=== PATIENT | male | born 1955 | race American Indian/Alaskan Native ===

== ENCOUNTER 2017-08-29 19:19 | Emergency (ER) | payer MEDICAID, OTHER ==
[2017-08-29 19:44] VITALS: TEMP 97.7
--- NOTE | 2017-08-29 19:59 | ED PDOC ---
HPI: Chest Pain Time Seen by Provider: 08/29/17 19:33 Chief Complaint (Nursing): Chest Pain Chief Complaint (Provider): substernal chest pain History Per: Patient History/Exam Limitations: no limitations Onset/Duration Of Symptoms: Hrs Current Symptoms Are (Timing): Still Present Severity: None Quality: "Pain" Associated Symptoms: denies: Nausea, Dyspnea Modifying Factors: None Exacerbating Factors: None Additional Complaint(s): 62 year old male with past medical history of hypertension of gout is brought into the emergency department by ambulance complaining of substernal chest pain which began this morning. Patient states that the pain is non radiating and is not associated with shortness of breath. - Risk Factors TAD Risk Factors: Pos: Hypertension Past Medical History Reviewed: Historical Data, Nursing Documentation, Vital Signs Vital Signs: Last Vital Signs Temp 97.7 F 08/29/17 19:30 Pulse 64 08/29/17 20:02 Resp 18 08/29/17 19:30 BP 109/64 08/29/17 20:02 Pulse Ox 98 08/29/17 23:43 - Medical History PMH: Arthritis, HTN, Sleep Apnea - Surgical History Surgical History: No Surg Hx - Family History Family History: States: Unknown Family Hx - Immunization History Hx Tetanus Toxoid Vaccination: No Hx Influenza Vaccination: No Hx Pneumococcal Vaccination: No - Home Medications Home Medications: Ambulatory Orders Medication Instructions Recorded Antihypertensive 05/14/14 Naprosyn 05/14/14 Naproxen [Naprosyn] 1 tab PO BID PRN #25 tab 05/14/14 - Allergies Allergies/Adverse Reactions: Allergies Allergy/AdvReac Type Severity Reaction Status Date / Time No Known Allergies Allergy Verified 08/29/17 19:41 Review of Systems ROS Statement: Except As Marked, All Systems Reviewed And Found Negative Cardiovascular: Positive for: Chest Pain (substernal) Respiratory: Negative for: Cough, Shortness of Breath Physical Exam - Reviewed Nursing Documentation Reviewed: Yes Vital Signs Reviewed: Yes - Physical Exam Appears: Positive for: Non-toxic, No Acute Distress Head Exam: Positive for: ATRAUMATIC, NORMAL INSPECTION, NORMOCEPHALIC Skin: Positive for: Normal Color, Warm, Dry. Negative for: Rash Eye Exam: Positive for: Normal appearance, EOMI, PERRL. Negative for: Nystagmus ENT: Positive for: Normal ENT Inspection. Negative for: Nasal Congestion, Tonsillar Exudate, Tonsillar Swelling Neck: Positive for: Normal, Painless ROM, Supple Cardiovascular/Chest: Positive for: Regular Rate, Rhythm, Chest Non Tender. Negative for: Tachycardia Respiratory: Positive for: Normal Breath Sounds. Negative for: Rales, Rhonchi, Wheezing, Respiratory Distress Gastrointestinal/Abdominal: Positive for: Normal Exam, Bowel Sounds, Soft. Negative for: Tenderness, Mass, Guarding, Rebound Back: Positive for: Normal Inspection. Negative for: L CVA Tenderness, R CVA Tenderness Extremity: Positive for: Normal ROM, Other (1-2 + pidding edema b/l). Negative for: Tenderness, Calf Tenderness, Deformity, Swelling Neurologic/Psych: Positive for: Alert, Oriented, Gait - Laboratory Results Result Diagrams: 08/29/17 20:10 08/29/17 20:10 - ECG O2 Sat by Pulse Oximetry: 98 (RA) Pulse Ox Interpretation: Normal Medical Decision Making Medical Decision Makin Initial Impression 62 y/o male presenting with substernal chest pain Initial Plan: * EKG * PROBNP * CMP * Troponin * CBC * CXR * reevaluation Documented by Jessica almeida acting as a scribe for Dung Richardson MD. All medical record entries made by the Scribe were at my direction and personally dictated by me. I have reviewed the chart and agree that the record accurately reflects my personal performance of the history, physical exam, medical decision making, and the department course for this patient. I have also personally directed, reviewed, and agree with the discharge instructions and disposition. Disposition - Clinical Impression Clinical Impression: Chest pain - Patient ED Disposition Is Patient to be Admitted: No Counseled Patient/Family Regarding: Studies Performed, Diagnosis, Need For Followup - Disposition Referrals: [facility] [Outside] Disposition: Routine/Home Disposition Time: 23:42 Condition: FAIR Instructions: Chest Pain Forms: [employer] (Serbian)
[2017-08-29 20:25] LABS: BASO # 0.1 K/uL (0.0-0.2); BASO % 0.6 % (0.0-2.0); EOS # 0.1 K/uL (0.0-0.7); EOS % 0.5 % (0.0-4.0); HEMOGLOBIN 11.6 g/dL (12.0-18.0); LYMPH # 1.4 K/uL (1.0-4.3); MEAN CELL VOLUME 87.3 fl (80.0-94.0); MEAN CORPUSCULAR HEMOGLOBIN 27.6 pg (27.0-31.0); MEAN CORPUSCULAR HGB CONC 31.6 g/dL (33.0-37.0); MEAN PLATELET VOLUME 9.2 fl (7.2-11.7); MONO # 0.9 K/uL (0.0-0.8); MONO % 7.7 % (0.0-10.0); NEUT # 9.5 K/uL (1.8-7.0); NEUT % 79.2 % (50.0-75.0); NRBC % 0.2 % (0.0-0.0); RBC 4.2 Mil/uL (4.40-5.90)
[2017-08-29 20:36] LABS: ALB/GLOB RATIO 0.8 (1.0-2.1); ALBUMIN 3.2 g/dL (3.5-5.0); ALT/SGPT 36 U/L (21-72); AST/SGOT 17 U/L (17-59); BLOOD UREA NITROGEN 18 mg/dl (9-20); CALCIUM 8.7 mg/dL (8.4-10.2); GFR AFRICAN-AMERICAN > 60; GFR NON-AFRICAN AMERICAN > 60
[2017-08-29 20:48] LABS: B-TYPE NATRIURETIC PEPTIDE 131 pg/ml (0-900)
[2017-08-30 05:50] VITALS: BP 120/77; PULSE 69; RESP 12; O2SAT 95
--- NOTE | 2017-08-30 07:50 | RAD ---
HISTORY: chest pain COMPARISON: No prior. TECHNIQUE: Chest PA and lateral FINDINGS: LUNGS: No active pulmonary disease. PLEURA: No significant pleural effusion identified. No pneumothorax apparent. CARDIOVASCULAR: Normal. OSSEOUS STRUCTURES: No significant abnormalities. VISUALIZED UPPER ABDOMEN: Normal. OTHER FINDINGS: None. IMPRESSION: No acute cardiopulmonary disease appreciated.
--- NOTE | 2017-08-30 20:38 | CARD ---
APPROVED REPORT EKG Measurement Heart [id number] <Conclusion> Normal sinus rhythm Moderate voltage criteria for LVH, may be normal variant Borderline ECG
== END 2017-08-30 05:50 | disposition home or self-care (01) ==
LOC: H.ER 19:19
DX: R07.89 Other chest pain (principal); I10 Essential (primary) hypertension

== ENCOUNTER 2017-08-30 19:44 | Emergency (ER) | payer MEDICAID ==
[2017-08-30 19:52] VITALS: BP 120/74; PULSE 82; RESP 18; TEMP 97.6; O2SAT 97
--- NOTE | 2017-08-30 20:54 | ED PDOC ---
Lower Extremity Pain/Injury Time Seen by Provider: 08/30/17 20:17 Chief Complaint (Nursing): Lower Extremity Problem/Injury Chief Complaint (Provider): Lower Extremity Problem/Injury History Per: Patient History/Exam Limitations: no limitations Additional Complaint(s): 62 year old male presents to emergency department with bilateral foot pain. PMD: Thea Kong MD Past Medical History Reviewed: Historical Data, Nursing Documentation, Vital Signs Vital Signs: Last Vital Signs Temp 97.6 F 08/30/17 19:47 Pulse 82 08/30/17 19:47 Resp 18 08/30/17 19:47 BP 120/74 08/30/17 19:47 Pulse Ox 97 08/30/17 19:47 - Medical History PMH: Arthritis, HTN, Sleep Apnea - Surgical History Surgical History: Cholecystectomy - Family History Family History: States: Unknown Family Hx - Immunization History Hx Tetanus Toxoid Vaccination: No Hx Influenza Vaccination: No Hx Pneumococcal Vaccination: No - Home Medications Home Medications: Ambulatory Orders Medication Instructions Recorded Antihypertensive 05/14/14 Naprosyn 05/14/14 Naproxen [Naprosyn] 1 tab PO BID PRN #25 tab 05/14/14 - Allergies Allergies/Adverse Reactions: Allergies Allergy/AdvReac Type Severity Reaction Status Date / Time No Known Allergies Allergy Verified 08/29/17 19:41 Review of Systems ROS Statement: Except As Marked, All Systems Reviewed And Found Negative Musculoskeletal: Positive for: Foot Pain (bilateral) - ECG O2 Sat by Pulse Oximetry: 97 (RA) Pulse Ox Interpretation: Normal Medical Decision Making Medical Decision Making: Initial Impression: Bilateral foot pain ___ Time: 2049 --Patient left before treatment was completed. Disposition - Clinical Impression Clinical Impression: Bilateral foot pain - Disposition Disposition: Left W/O Treatment Disposition Time: 20:50 Condition: FAIR Forms: [employer] (Peruvian)
== END 2017-08-30 20:50 | disposition left against medical advice (07) ==
LOC: H.ER 19:44
DX: M79.671 Pain in right foot (principal); M79.672 Pain in left foot; I10 Essential (primary) hypertension